=== PATIENT | male | born 1955 | race Caucasian/White ===

== ENCOUNTER 2018-12-21 17:53 | Inpatient (IN) | payer MEDICAID ==
[~2018-12-21] VITALS: Ht 182.9 cm; Wt 82.5 kg
--- NOTE | ~2018-12-21 | CN ---
PATIENT NAME:BEAR WOODS MEDICAL RECORD: [id number] : 57 LOCATION:[facility] D.2119 ADMIT DATE: 12/21/18 ACCOUNT: [id number] CONSULTING PHYSICIAN: SAVAGE FISHER MD REFERRING PHYSICIAN: CHUY CHAUDHARY MD DATE OF CONSULTATION: 12/22/2018 CARDIOLOGY CONSULT DIAGNOSES: 1. Chest pain. 2. Atrial fibrillation. HISTORY OF PRESENT ILLNESS: Mr. Woods presents with chest pain. His chest pain is very positional and it radiates to his back. It is much worse with turning towards the left side or twisting. His EKG is with no ST-T changes. His troponin is normal. His EKG does have atrial fibrillation. He was told, since age 26, he has atrial fibrillation. One and a half to two years ago, he had a workup in [place] including cardiac catheterization that showed no blockage. He was encouraged to be on blood thinner for the atrial fibrillation; however, he refuses. He has not had a CVA as of yet. He is on no rate control agents. His heart rate is in the 90s. It is atrial fibrillation. Echo is scheduled by Dr. Mckeon for next week. PHYSICAL EXAMINATION: GENERAL APPEARANCE: Well-nourished, well-developed, appears stated age. Level of distress, comfortable. PSYCHIATRIC: Mental status, alert, normal affect. Orientation, oriented to time, place and person. EYES: Lids and conjunctiva, noninjected. No discharge, no pallor. ENT: Lips, teeth, gums, normal dentition. Oropharynx, no cyanosis, no pallor. NECK: Carotid arteries, bilateral normal upstroke, no bruits, no thrills. JUGULAR VEINS: No jugular venous pressure or distention. CERVICAL LYMPH NODES: Nontender, nonenlarged. THYROID: Not enlarged. Nontender. No nodules. LUNGS: Respiratory effort, unlabored. CHEST: Normal curvature. No thoracic deformity. No chest wall tenderness. Percussion, resonant. Auscultation, clear. No wheezes, no rales, no rhonchi. CARDIOVASCULAR: Precordial exam, nondisplaced. No heaves or pericardial thrills. Rate and rhythm, regular. Heart sounds, normal S1, normal S2. No S3, no gallop, no rub. Systolic murmur, not heard. Diastolic murmur, not heard. EXTREMITIES: No cyanosis, no edema. Peripheral pulses, full and equal in all extremities, except as noted. No bruits appreciated. ABDOMEN: Soft, nondistended. Normal aorta. No bruit. Nontender. No masses. Liver, nontender, no hepatomegaly. Spleen, nontender, no splenomegaly. MUSCULOSKELETAL: No joint tenderness. No joint swelling. No erythema. NEUROLOGICAL: Normal gait, normal strength, normal tone. SKIN: Warm and dry. OVERALL IMPRESSION: Chest pain, musculoskeletal in nature; atrial fibrillation, chronic. At this time, we will get the echo today, but no other cardiac workup or treatment is necessary. TRANSINT:[id number] Voice Confirmation ID: [id number] DOCUMENT ID: [id number] CONSULT REPORT [id number] BEAR WOODS JEFFREY MD CC: [id number] DICTATION DATE: 12/22/18 1050 WELDER GAS AUTOMATIC: 12/22/18 1449 ADM IN [facility] [address] [id number]
--- NOTE | ~2018-12-21 | EC ---
PATIENT:BEAR HITCHCOCK DATE OF SERVICE: 12/21/18 SEX: M MEDICAL RECORD: [id number] DATE OF : 57 LOCATION:D.M2 D.211 AGE OF PATIENT: 63 ADMISSION DATE: 12/21/18 REFERRING PHYSICIAN: INTERPRETING PHYSICIAN: SAVAGE STRICKLAND MD ECHOCARDIOGRAM REPORT ECHO CHARGES 4 ECHO COMPLETE Date: 12/22/18 CLINICAL DIAGNOSIS: A-FIB ECHOCARDIOGRAPHIC MEASUREMENTS (adult normal given) AC root (d.<3.7cm) 3.6 cm LV Septum d (<1.2 cm> 1.1 cm Valve Excursion 2.1 cm LV Septum (systole) 1.7 cm Left Atria (s.<4.0cm> 4.4 cm LVPW d(<1.2cm) 1.5 cm RV (d.<2.3cm) 2.7 cm LVPW (sytole) 2.0 cm LV diastole(<5.6CM) 4.4 cm MV E-F(>70mm/sec) cm LV systole 2.3 cm LVOT Diameter 2.1 cm MV exc.(>10mm) cm Est.ejection fraction (50-75%) % DOPPLER: LVIT cm/sec A cm/sec E 93.0 cm/sec LA cm/sec RVSP 27.0 mmHg LVOT 87.0 cm/sec AOP1/2T m/s Asc. Ao 98.0 cm/sec RVOT 45.0 cm/sec RA cm/sec PA 58.0 cm/sec AV Gradient Peak 3.9 mmHg AV Mean 2.2 mmHg AV Area 3.1 cm MV Gradient Peak 5.1 mmHg MV Mean 1.5 mmHg MV Area cm COMMENTS: English Adjunct Faculty: Maranda SWIFT Circular Ripsaw Operator: 1 Dr. Strickland TAPE# PACS Pericardial Effusion N DATE OF SERVICE: 12/22/2018 ECHOCARDIOGRAM FINDINGS: 1. Left ventricular chamber size is within normal limits. Left ventricular systolic function is normal. Overall ejection fraction estimated at 55%. 2. Left atrium is enlarged at 4.4 cm. Right atrium and right ventricular chamber sizes are as well mildly dilated. 3. Valvular structures have normal structure and motion. ECHOCARDIOGRAM REPORT [id number] BEAR HITCHCOCK 4. Doppler interrogation reveals moderate mitral regurgitation, moderate tricuspid regurgitation, no other valvular insufficiency or stenosis. Pulmonary systolic pressure is estimated at 27 mmHg. 5. No evidence of pericardial effusion or left ventricular thrombus. TRANSINT:[id number] Voice Confirmation ID: [id number] DOCUMENT ID: [id number] SAVAGE STRICKLAND MD CC: [id number] DICTATION DATE: 12/23/18920 SUTURE GAUGER: 12/23/18932 ADM IN [facility] [address] [place] [address]
[2018-12-21] MEDS ORDERED: TRAZODONE HCL150 MG PO (18:02)
[2018-12-21] MEDS ORDERED: REMERON15 MG PO (18:03)
[2018-12-21] MEDS ORDERED: SEROQUEL25 MG PO (18:04)
[2018-12-21] MEDS ORDERED: VITAMIN B-1100 M1 PO (18:04)
[2018-12-21] MEDS ORDERED: NEXIUM20 MG PO (18:05)
[2018-12-21] MEDS ORDERED: NALTREXONE HCL50 MG PO (18:09)
[2018-12-21 18:14] VITALS: BP 133/91
[2018-12-21 18:40] LABS: BASOPHILS 0.2 % (0-2); EOSINOPHILS 1.6 % (0-7); HEMATOCRIT 32.9 % (42.0-54.0); IMMATURE GRANULOCYTES 0.4 % (0-5); LYMPHOCYTES 24.6 % (15-50); MCH 31.4 pg (26.0-34.0); MCHC 33.4 g/dL (31.0-37.0); MEAN PLATELET VOLUME 8.8 fL (7.4-10.4); MONOCYTES 12.4 % (2-11); NEUTROPHILS 60.8 % (40-80); PLATELET COUNT 211 10x3/uL (130-400); RDW 12.4 % (11.5-14.5)
[2018-12-21 18:48] LABS: APTT 33.4 SECONDS (22.8-39.4); INR 1.12 (0.85-1.17); PROTIME 13.9 SECONDS (11.6-15.0)
[2018-12-21 18:55] LABS: ALKALINE PHOSPHATASE 79 U/L (46-116); BILIRUBIN - TOTAL 0.45 mg/dL (0.2-1.3); CALC OSMOLALITY 270 mosm/kg (275-300); CALCIUM 8.7 mg/dL (8.5-10.1); CARBON DIOXIDE 27.1 mmol/L (21.0-32.0); CHLORIDE - SERUM 103 mmol/L (98-107); CREATININE - SERUM 0.9 mg/dL (0.6-1.3); GLUCOSE 91 mg/dL (74-106); PROTEIN - SERUM 6.8 g/dL (6.4-8.2); SODIUM 136 mmol/L (136-145); UREA NITROGEN 9 mg/dL (7-18); eGFR NON AFRICAN AMERICAN > 90 mL/min (90-120)
[2018-12-21 19:05] LABS: ALT (SGPT) 4 U/L (10-68)
--- NOTE | 2018-12-21 19:05 | NUR ---
RAFFI JOSEPH AT PT BEDSIDE, PLAN OF CARE DISCUSSED WITH PT AND FAMILY.
[2018-12-21 19:10] LABS: CKMB 0.4 U/L (0.0-3.6); CREATINE KINASE 30 UL (21-232); MAGNESIUM - SERUM 1.7 mg/dL (1.8-2.4); TROPONIN-I < 0.017 ng/mL (0.000-0.060)
[2018-12-21 19:30] VITALS: BP 147/91
--- NOTE | 2018-12-21 19:50 | NUR ---
PT REFUSED PO TYLENOL. PT STATES "IT MADE ME REALLY SICK WHEN I TOOK IT ONE TIME AND I DON'T WANT IT TO MAKE ME FEEL THAT WAY AGAIN". PT REPORTS NAUSEA WHEN TAKING TYLENOL. RN EXPLAINED TO PT ONLY PAIN MED ORDERED IS TYLENOL. PT VERBALIZES UNDERSTANDING. EDP NOTIFIED.
--- NOTE | 2018-12-21 20:30 | NUR ---
ADMIT TO ROOM 2118 FROM ER. ALERT/ORIENTED. AMBULATORY. CARDIZEM DRIP INFUSING AT 10ML/HR TO LEFT HAND. TELEMETRY INITIATED. SHOWING UCAF RATE 110. ADMISSION HISTORY AND ASSESSMENT COMPLETED. HOME MEDS REVIEWED. PT DID TAKE HIS NORMAL BEDTIME MEDS AND THEN HIS MEDICATIONS WERE SENT HOME WITH HIS SON/DIL. SPOKE WITH SON/DIL OUTSIDE OF ROOM. THEY REPORT PATIENT IS ONLY 8 WEEKS SOBER AND THAT HE WILL TRY VERY HARD TO GET IV PAIN MEDS OR BENZODIAPINES ORDERED IF POSSIBLE. WILL MAKE SURE THAT ALL OF THIS INFORMATION IF RELAYED TO MD IF PT REPORTS ANY CHEST PAIN OR DISCOMFORT. FOR NOW, PT IS RESTING AND NOT VOICING ANY PAIN OR DISCOMFORT. PLAN OF CARE INITIATED. MONITOR AND KEEP SAFE.
[2018-12-21 23:56] VITALS: BP 147/84; BMI 25.8
[2018-12-22] VITALS: BP 127/85; BP 99/64
[2018-12-22 00:48] LABS: CKMB 0.2 U/L (0.0-3.6); CREATINE KINASE 29 UL (21-232)
[2018-12-22 00:49] LABS: TROPONIN-I < 0.017 ng/mL (0.000-0.060)
--- NOTE | 2018-12-22 01:31 | NUR ---
RESTING IN BED WITH EYES CLOSED. 102 UCAF. CARDIZEM AT 10ML/HR.
[2018-12-22 02:48] LABS: BASOPHILS 0.2 % (0-2); HEMOGLOBIN 10.6 g/dL (13.5-17.5); IMMATURE GRANULOCYTES 0.2 % (0-5); LYMPHOCYTES 28.4 % (15-50); MCH 30.8 pg (26.0-34.0); MCHC 33.1 g/dL (31.0-37.0); MEAN PLATELET VOLUME 8.7 fL (7.4-10.4); MONOCYTES 14.1 % (2-11); NEUTROPHILS 54.1 % (40-80); PLATELET COUNT 221 10x3/uL (130-400); RBC 3.44 10x6/uL (4.20-6.10); RDW 12.3 % (11.5-14.5); WBC 8.3 10x3/uL (4.8-10.8)
[2018-12-22 03:12] LABS: ALBUMIN 2.8 g/dL (3.4-5.0); ALKALINE PHOSPHATASE 75 U/L (46-116); ALT (SGPT) 5 U/L (10-68); BILIRUBIN - TOTAL 0.37 mg/dL (0.2-1.3); CALC OSMOLALITY 276 mosm/kg (275-300); CALCIUM 8.4 mg/dL (8.5-10.1); CARBON DIOXIDE 25.6 mmol/L (21.0-32.0); CHLORIDE - SERUM 106 mmol/L (98-107); CKMB 0.1 U/L (0.0-3.6); CREATINE KINASE 26 UL (21-232); CREATININE - SERUM 0.8 mg/dL (0.6-1.3); GLUCOSE 99 mg/dL (74-106); POTASSIUM - SERUM 3.9 mmol/L (3.5-5.1); PROTEIN - SERUM 6.4 g/dL (6.4-8.2); SODIUM 139 mmol/L (136-145); TROPONIN-I < 0.017 ng/mL (0.000-0.060); UREA NITROGEN 9 mg/dL (7-18); eGFR NON AFRICAN AMERICAN > 90 mL/min (90-120)
[2018-12-22 04:00] VITALS: BP 100/71
--- NOTE | 2018-12-22 07:35 | NUR ---
PT RESTING IN BED, VITALS TAKEN AND WNL. SHIFT ASSESSMENT PERFORMED. DENIES ANY NEEDS AT THIS TIME. WILL CONT TO FOLLOW POC
[2018-12-22 07:38] VITALS: BP 98/66
[2018-12-22 08:31] LABS: CKMB 0.2 U/L (0.0-3.6); CREATINE KINASE 21 UL (21-232); MAGNESIUM - SERUM 1.7 mg/dL (1.8-2.4)
[2018-12-22 08:36] LABS: TROPONIN-I < 0.017 ng/mL (0.000-0.060)
[2018-12-22] MEDS ORDERED: SEROQUEL50 MG PO ×2 (10:30→10:31)
[2018-12-22] MEDS ORDERED: NEXIUM40 MG PO (10:33)
--- NOTE | 2018-12-22 12:00 | NUR ---
PT RESTING IN BED EATING LUNCH. DENIES ANY NEEDS AT THIS TIME. WILL CONT TO FOLLOW POC
[2018-12-22 13:33] VITALS: BP 150/94
[2018-12-22 14:17] VITALS: Ht 182.9 cm; Wt 82.5 kg
[2018-12-22 14:55] LABS: % SATURATION 18 % (15-55); IRON 53 ug/dl (35-150); TOTAL IRON BIND CAPACITY 288 ug/dl (260-445); UNSAT IRON BIND CAPACITY 235 ug/dl (150-375)
[2018-12-22 15:19] LABS: T4 THYROXIN - FREE 0.79 ng/dL (0.76-1.46); THYROID STIMULATING HORMONE 2.06 uIU/mL (0.36-3.74)
--- NOTE | 2018-12-22 19:07 | NUR ---
RECEIVED REPORT, WILL ASSUME CARE OF PT, DENIES ANY NEEDS, PLACED HAT IN COMMODE(FOR STOOL SAMPLE),PT SAYS HE IS READY TO GO HOME, BED IS LOW, SRX1, CALL LIGHT IN REACH, WILL CONTINUE PLAN OF CARE
[2018-12-22 20:00] VITALS: BP 105/68
--- NOTE | 2018-12-22 21:34 | NUR ---
PM MEDS GIVEN, FRESH ICE WATER GIVEN, DENIES ANY NEEDS, CALL LIGHT IN REACH, WILL CONTINUE PLAN OF CARE
--- NOTE | 2018-12-23 00:03 | NUR ---
I have reviewed this patient and I concur with the Shift Assessment completed by the Licensed Practical Nurse today this shift.
[2018-12-23 00:07] VITALS: BP 111/76
[2018-12-23 04:00] VITALS: BP 126/87
[2018-12-23 06:41] LABS: CALC OSMOLALITY 274 mosm/kg (275-300); CALCIUM 8.6 mg/dL (8.5-10.1); CARBON DIOXIDE 25.9 mmol/L (21.0-32.0); CHLORIDE - SERUM 106 mmol/L (98-107); CREATININE - SERUM 0.9 mg/dL (0.6-1.3); GLUCOSE 95 mg/dL (74-106); MAGNESIUM - SERUM 1.9 mg/dL (1.8-2.4); SODIUM 138 mmol/L (136-145); UREA NITROGEN 11 mg/dL (7-18); eGFR NON AFRICAN AMERICAN > 90 mL/min (90-120)
[2018-12-23 06:54] LABS: BASOPHILS 0.4 % (0-2); EOSINOPHILS 4.4 % (0-7); HEMATOCRIT 32.9 % (42.0-54.0); IMMATURE GRANULOCYTES 0.1 % (0-5); LYMPHOCYTES 34.4 % (15-50); MCH 31.2 pg (26.0-34.0); MCHC 33.4 g/dL (31.0-37.0); MCV 93.2 fL (80.0-100.0); MEAN PLATELET VOLUME 9.1 fL (7.4-10.4); MONOCYTES 13.1 % (2-11); NEUTROPHILS 47.6 % (40-80); PLATELET COUNT 257 10x3/uL (130-400); RBC 3.53 10x6/uL (4.20-6.10); RDW 12.6 % (11.5-14.5); WBC 7.6 10x3/uL (4.8-10.8)
--- NOTE | 2018-12-23 07:20 | NUR ---
ASSESSMENT COMPLETED. AWAKE AND ALERT. ORIENTED. TELEMERTY SHOWS CAF 90. SL TO LEFT HAND. DENIES ANY NEEDS. UP AB EDWIN. CALL LIGHT IN REACH WITH SR UP. WILL MONITOR
[2018-12-23 08:55] VITALS: BP 126/86
--- NOTE | 2018-12-23 14:09 | NUR ---
I have reviewed this patient and I concur with the Shift Assessment completed by the Licensed Practical Nurse today this shift.
[2018-12-23 14:43] LABS: APPEARANCE CLEAR (CLEAR); BILIRUBIN NEGATIVE (NEGATIVE); COLOR YELLOW (YELLOW); GLUCOSE NEGATIVE (NEGATIVE); KETONE NEGATIVE (NEGATIVE); NITRITE NEGATIVE (NEGATIVE); PROTEIN TRACE mg/dL (NEGATIVE); UROBILINOGEN NORMAL (NORMAL)
[2018-12-23 14:47] LABS: RED CELLS - URINE OCC /hpf (0-5); WHITE CELLS - URINE >50 /hpf (0-5)
[2018-12-23 14:48] LABS: BACTERIA MODERATE /hpf (NONE SEEN)
--- NOTE | 2018-12-23 17:48 | NUR ---
HOB UP TALKING WITH FAMILY. DENIES ANY NEEDS. WILL MONITOR
--- NOTE | 2018-12-23 19:35 | NUR ---
ASSESSMENT COMPLETE. PT A&O. RESPERATIONS EVEN ON RA. IV TO LEFT HAND SL, IV SITE CLEAN AND DRY. FRESH ICE WATER GIVEN AT PT REQUEST. PT DENIES PAIN OR NEEDS.
[2018-12-23 20:00] VITALS: BP 128/84
--- NOTE | 2018-12-23 20:42 | NUR ---
HS MEDS GIVEN WITH FRESH ICE WATER. PT DENIES PAIN OR NEEDS.
[2018-12-24] VITALS: BP 130/78
[2018-12-24 04:00] VITALS: BP 121/80
--- NOTE | 2018-12-24 05:13 | NUR ---
I have reviewed this patient and I concur with the Shift Assessment completed by the Licensed Practical Nurse today this shift.
[2018-12-24 06:20] LABS: BASOPHILS 0.4 % (0-2); EOSINOPHILS 4.9 % (0-7); HEMATOCRIT 33.9 % (42.0-54.0); HEMOGLOBIN 11.6 g/dL (13.5-17.5); IMMATURE GRANULOCYTES 0.3 % (0-5); MCH 31.5 pg (26.0-34.0); MCHC 34.2 g/dL (31.0-37.0); MCV 92.1 fL (80.0-100.0); MEAN PLATELET VOLUME 9.1 fL (7.4-10.4); MONOCYTES 12.7 % (2-11); NEUTROPHILS 48.7 % (40-80); PLATELET COUNT 244 10x3/uL (130-400); RBC 3.68 10x6/uL (4.20-6.10); RDW 12.3 % (11.5-14.5); WBC 7.6 10x3/uL (4.8-10.8)
[2018-12-24 06:34] LABS: CALC OSMOLALITY 279 mosm/kg (275-300); CALCIUM 8.6 mg/dL (8.5-10.1); CHLORIDE - SERUM 107 mmol/L (98-107); CREATININE - SERUM 0.9 mg/dL (0.6-1.3); GLUCOSE 91 mg/dL (74-106); MAGNESIUM - SERUM 1.6 mg/dL (1.8-2.4); PHOSPHOROUS 5.4 mg/dL (2.5-4.9); PRO BNP 1256 pg/mL (0-125); SODIUM 141 mmol/L (136-145); UREA NITROGEN 11 mg/dL (7-18); eGFR NON AFRICAN AMERICAN > 90 mL/min (90-120)
[2018-12-24] MEDS ORDERED: ELIQUIS2.5 MG PO (06:39)
[2018-12-24] MEDS ORDERED: LEVAQUIN750 MG PO (07:20)
--- NOTE | 2018-12-24 08:52 | MORECARE ---
CASE MANAGEMENT DISCHARGE SUMMARY PATIENT: BEAR HITCHCOCK UNIT: [id number] ADM DATE: 12/21/18 AGE: 63 : 57 SEX: M ROOM/BED: D.2119 AUTHOR: DASHA WISE PHYSICIAN: REFERRING PHYSICIAN: CHUY CHAUDHARY MD DATE OF SERVICE: 12/24/18 Discharge Plan Patient Name: BEAR HITCHCOCK [facility] [facility] 1955 Planned Disposition: Home Anticipated Discharge Date: 12/24/18 Discharge Date: Expected LOS: 3 Initial Reviewer: [email or web address] Initial Review Date: 12/24/2018 Generated: 12/24/18 9:52 am DCPIA - Discharge Planning Initial Assessment Updated by [email or web address]: Travis De Los Santos on 12/24/18 8:51 am * Is the patient Alert and Oriented? Yes * How many steps to enter\exit or inside your home? * PCP DR. CASH * Pharmacy [facility] IN [place] * Preadmission Environment Home with Family * ADLs Independent * Equipment Cane * Other Equipment NO MEDICAL EQUIPMENT PROVIDER PREFERENCE * List name and contact numbers for known caregivers / representatives who currently or will assist patient after discharge: JOSE HITCHCOCK, SON, * Verbal permission to speak to the caregivers and representatives has been obtained from the patient. N/A * Community resources currently utilized None * Please name any agencies selected above. NONE * Additional services required to return to the preadmission environment? No * Can the patient safely return to the preadmission environment? Yes * Has this patient been hospitalized within the prior 30 days at any hospital? No Patient Name: BEAR HITCHCOCK Page [id number] at 0852 All edits/amendments must be made on the electronic document DICTATION DATE: 12/24/18850 DATA WAREHOUSE CONSULTANT: ALEJANDRA 12/24/18850 RPT#: [id number] DC DATE: STATUS: ADM IN [facility] [address] [place] [address] END OF REPORT
--- NOTE | 2018-12-24 08:59 | MORECARE ---
CASE MANAGEMENT DISCHARGE SUMMARY PATIENT: BEAR HITCHCOCK UNIT: [id number] ADM DATE: 12/21/18 AGE: 63 : 57 SEX: M ROOM/BED: D.0511 AUTHOR: DASHA WISE PHYSICIAN: REFERRING PHYSICIAN: CHUY CHAUDHARY MD DATE OF SERVICE: 12/24/18 Discharge Plan Patient Name: BEAR HITCHCOCK Facility: [facility]:[place] : 1955 Planned Disposition: Home Anticipated Discharge Date: 12/24/18 Discharge Date: Expected LOS: 3 Initial Reviewer: [email or web address] Initial Review Date: 12/24/2018 Generated: 12/24/18 9:59 am Comments DCP- Discharge Planning Updated by [email or web address]: Travis De Los Santos on 12/24/18 7:[address] Patient Name: BEAR HITCHCOCK Encounter No: [id number] : 1955 Primary Insurance: MEDICAID [place] Anticipated DC Date: 12-24-2018 Planned Disposition: Home DISCHARGE PLANNING NOTE: CM MET WITH PT IN ROOM TO DISCUSS DISCHARGE PLANNING AND NEEDS. PT REPORTS LIVING AT HOME INDEPENDENTLY WITH ADULT SON AND DAUGHTER IN LAW. PT HAS A [place]EW WITH NO MEDICAL EQUIPMENT PROVIDER PREFERENCE. PT HAS NO OUTSIDE SERVICES ASSISTING IN THE HOME. CM DISCUSSED AVAILABILITY OF HOME HEALTH, REHAB SERVICES AND MEDICAL EQUIPMENT. PT DENIES DISCHARGE NEEDS, REPORTS HIS DAUGHTER IN LAW IS HERE TO PICK HIM UP FOR DISCHARGE HOME. $10 COPAY CARD FOR [employer] GIVEN TO PSYCHIATRIC NURSING AIDE NURSE TO BE PROVIDED TO PT FOR DISCHARGE HOME TODAY. Travis De Los Santos, CASE MANAGEMENT DCPIA - Discharge Planning Initial Assessment Updated by [email or web address]: Travis De Los Santos on 12/24/18 8:51 am * Is the patient Alert and Oriented? Yes * How many steps to enter\exit or inside your home? * PCP DR. CASH * Pharmacy [facility] IN [place] * Preadmission Environment Home with Family * ADLs Independent * Equipment Cane * Other Equipment NO MEDICAL EQUIPMENT PROVIDER PREFERENCE * List name and contact numbers for known caregivers / representatives who currently or will assist patient after discharge: JOSE HITCHCOCK, SON, * Verbal permission to speak to the caregivers and representatives has been obtained from the patient. N/A * Community resources currently utilized None * Please name any agencies selected above. NONE * Additional services required to return to the preadmission environment? No * Can the patient safely return to the preadmission environment? Yes * Has this patient been hospitalized within the prior 30 days at any hospital? No Last DP export: 12/24/18 7:52 a Patient Name: BEAR HITCHCOCK Page [phone] at 0859 All edits/amendments must be made on the electronic document DICTATION DATE: 12/24/18857 PELLET POST INSPECTOR: ALEJANDRA 12/24/18857 RPT#: [id number] DC DATE: STATUS: ADM IN [facility] [address] [place] [address] END OF REPORT
--- NOTE | 2018-12-24 09:54 | NUR ---
IV AND TELEMETRY DCD. DC PLANS GIVEN. UNDERSTANDING VOICED. ESCORTED TO CAR BY W/C.
== END 2018-12-24 09:55 | disposition home or self-care (01) | DRG 309 ==
LOC: D.ER 17:53 → D.M2 19:27
PROVIDERS: Emergency Medicine; Family Medicine; ADMIT Internal Medicine Nephrology; ATTEND Internal Medicine Nephrology
DX: I48.91 Unspecified atrial fibrillation (principal); I20.0 Unstable angina; N39.0 Urinary tract infection, site not specified; D64.9 Anemia, unspecified; E83.42 Hypomagnesemia; F32.9 Major depressive disorder, single episode, unspecified; F41.9 Anxiety disorder, unspecified